=== PATIENT | female | born 1930 | race Caucasian/White ===

== ENCOUNTER 2019-11-03 19:48 | Emergency (ER) | payer OTHER ==
--- NOTE | 2019-11-03 20:49 | RAD REPORT ---
EXAM DESCRIPTION: CT - Head C Spine Cap Wo Con - 11/03/2019 8:30 pm CLINICAL HISTORY: Trauma, head and neck injury. Chest, abdomen and pelvis pain. PAIN COMPARISON: No comparisons TECHNIQUE: CT head without contrast. CT cervical spine without contrast with coronal and sagittal reformatted images. CT chest, abdomen and pelvis without contrast with coronal and sagittal reformatted images of the [facility] [place]. All CT scans are performed using dose optimization technique as appropriate and may include automated exposure control or mA/KV adjustment according to patient size. FINDINGS: CT HEAD WITHOUT CONTRAST: No intracranial hemorrhage, hydrocephalus or extra-axial fluid collection. Moderate generalized brain atrophy is present with moderate periventricular and deep white matter chronic microvascular ischemi c changes. No areas of brain edema or midline shift. The paranasal sinuses and mastoids are clear. The calvarium is intact. Small posterior left scalp hem atoma. CT CERVICAL SPINE WITHOUT CONTRAST: No fracture or subluxation. The prevertebral soft tissues are normal in thickness. CT CHEST, ABDOMEN, PELVIS WITHOUT CONTRAST: NOTE: Lack of contrast is a significant limitation in the assessment of trauma related findings. Spec ifically, solid organ, vascular and bowel evaluation is significantly limited. The lungs are clear.No pneumothorax or pericardial/pleural fluid. No evidence of intra-abdominal visceral injury, free fluid or free air is seen within the above detai led limitations. Moderate axial hiatal hernia. Prominent sigmoid diverticulosis without diverticulitis. Mild wedge compression deformity of the T4 vertebral body seen, age uncertain. Vertebral body height loss is estimated at 15-20% IMPRESSION: Mild wedge compression deformity of the T4 vertebral body noted, age uncertain. Correlat ion with back pain symptomology in this region is suggested. Elsewhere, no acute trauma finding seen.
--- NOTE | 2019-11-03 21:23 | ER ---
Nurse's Notes [facility] Name: Faby Berkowitz Age: 89 yrs Sex: Female : 1930 Arrival Date: 11/03/2019 Time: 19:53 Bed 7 Private MD: Diagnosis: Laceration without foreign body of scalp Presentation: 11/02 19:49 Chief complaint: EMS states: PT tripped in the parking lot, fell backwards and hit her jb4 head. No LOC, no blood thinners. PT is A\T\Ox4. 19:49 Care prior to arrival: None. Mechanism of Injury: Fall from standing position. Trauma jb4 event details: Injury occurred in the [facility]. 19:49 Acuity: LINA 2 jb4 19:49 Method Of Arrival: EMS: [facility] jb4 19:49 Coronavirus screen: Client denies travel out of the [place] in the last 14 days. At this jb4 time, the client does not indicate any symptoms associated with coronavirus-19. Ebola Screen: Patient negative for fever greater than or equal to 101.5 degrees Fahrenheit, and additional compatible Ebola Virus Disease symptoms. 19:49 Initial Sepsis Screen: Does the patient meet any 2 criteria? No. Patient's initial jb4 sepsis screen is negative. Does the patient have a suspected source of infection? No. Patient's initial sepsis screen is negative. Risk Assessment: Do you want to hurt yourself or someone else? Patient reports no desire to harm self or others. Onset of symptoms was November 03, 2019. Transition of care: patient was not received from another setting of care. Trauma Activation: Alert Physician: ED Physician; Name: Ngozi; Notified At: 19:49; Arrived At: 19:49 Physician: General Surgeon; Name: ; Notified At: 19:49; Arrived At: Physician: Radiology; Name: Ru; Notified At: 19:49; Arrived At: 19:49 Physician: Respiratory; Name: ; Notified At: 19:49; Arrived At: Physician: Lab; Name: ; Notified At: 19:49; Arrived At: Historical: - Allergies: 19:49 No Known Allergies; jb4 - Home Meds: 19:49 Blood pressure medication [Active]; Medication for Osteoporosis [Active]; jb4 - PMHx: 19:49 Osteoporosis; Hypertension; jb4 - PSHx: 19:49 None; jb4 - Immunization history:: Adult Immunizations up to date, Last tetanus immunization: unknown. - Immunization history: Last tetanus immunization: unknown. - Social history:: Smoking status: Patient reports the use of cigarette tobacco products, denies chronic smoking, but will smoke occasionally, Patient/guardian denies using alcohol, street drugs. Screenin:49 Abuse screen: Denies threats or abuse. Nutritional screening: No deficits noted. jb4 Tuberculosis screening: No symptoms or risk factors identified. Fall risk At risk due to age, prior history of falls, Intervention for positive screen: ED Physician notified, side rails up. 19:49 Fall Risk Fall in past 12 months (25 points). Total Marin Fall Scale indicates Low Risk jb4 Score (25-44 pts). Fall prevention measures have been instituted. Side Rails Up X 2 Placed close to Nursing Station Frequent Obs/Assesments occuring Family Present and informed to notify staff if they need to leave bedside As available Patient and Family Educated on Fall Prevention Program and strategies. Primary Survey: 19:49 NO uncontrolled hemorrhage observed. A: The patient is alert. Airway: patent, No jb4 supplemental oxygen in use on arrival. Oral cavity: clear, gag reflex present. Breathing/Chest: Respiratory pattern: regular, Respiratory effort: spontaneous, unlabored, Chest inspection: symmetrical rise and fall of the chest. Circulation: Skin color: pink, Skin temperature: warm, dry. Disability Alert. Exposure/Environment: All clothing and personal items were removed. Forensic evidence collection is not deemed to be indicated at this time. Items placed in patient belonging bag. 20:45 Reassessment Airway Airway Patent Oral cavity Clear +Gag reflex Breathing/Chest jb4 Respiratory pattern Regular Respiratory effort Spontaneous Unlabored Chest inspection Symmetrical Circulation Color [place] Temperature Warm Dry Disability Alert. Secondary Survey: 19:49 HEENT: Head Other Laceration noted to the posterior left skalp Face No injury/deformity jb4 Eyes: No injury or deformity noted. Ears: clear Nose: clear to bilateral nares. Throat: is clear with gag reflex present. Gastrointestinal: No deficits noted. : No deficits noted. No signs and/or symptoms were reported regarding the genitourinary system. Musculoskeletal: No deficits noted. No signs and/or symptoms reported regarding the musculoskeletal system. Injury Description: Laceration sustained to left parietal area is not bleeding. Assessment: 19:49 General: Appears in no apparent distress. comfortable, Behavior is calm, cooperative, jb4 appropriate for age. Pain: Denies pain. Neuro: Level of Consciousness is awake, alert, obeys commands, Oriented to person, place, time, situation. Cardiovascular: Patient's skin is warm and dry. Respiratory: Airway is patent Respiratory effort is even, unlabored, Respiratory pattern is regular, symmetrical. GI: No signs and/or symptoms were reported involving the gastrointestinal system. : No signs and/or symptoms were reported regarding the genitourinary system. EENT: No signs and/or symptoms were reported regarding the EENT system. Derm: Skin is pink, warm \T\ dry. Musculoskeletal: Circulation, motion, and sensation intact. Range of motion:. Injury Description: Laceration sustained to left parietal area is not bleeding, moderate bleeding noted at this time. 20:45 Reassessment: Patient appears in no apparent distress at this time. Patient and/or jb4 family updated on plan of care and expected duration. Pain level reassessed. Patient is alert, oriented x 3, equal unlabored respirations, skin warm/dry/pink. 21:43 Reassessment: Patient appears in no apparent distress at this time. Patient and/or jb4 family updated on plan of care and expected duration. Pain level reassessed. Patient is alert, oriented x 3, equal unlabored respirations, skin warm/dry/pink. Daughter and pt verbalized understanding of D/c and follow up instructions. Denies questions or concerns. Assisted to vehicle via wheelchair. Vital Signs: 19:49 BP 173 / 71; Pulse 75; Resp 18; Temp 98.4(O); Pulse Ox 98% on R/A; Weight 43.54 kg (R); jb4 Height 5 ft. 2 in. (157.48 cm); Pain 0/10; 20:15 BP 168 / 102; Pulse 74; Resp 16; Pulse Ox 98% on R/A; jb4 21:30 BP 180 / 81; Pulse 72; Resp 16; Pulse Ox 97% on R/A; Pain 0/10; jb4 19:49 Body Mass Index 17.56 (43.54 kg, 157.48 cm) jb4 [place] Coma Score: 19:49 Eye Response: spontaneous(4). Verbal Response: oriented(5). Motor Response: obeys jb4 commands(6). Total: 15. 20:45 Eye Response: spontaneous(4). Verbal Response: oriented(5). Motor Response: obeys jb4 commands(6). Total: 15. 21:44 Eye Response: spontaneous(4). Verbal Response: oriented(5). Motor Response: obeys jb4 commands(6). Total: 15. Trauma Score (Adult): 19:49 Eye Response: spontaneous(1); Verbal Response: oriented(1); Motor Response: obeys jb4 commands(2); Systolic BP: > 89 mm Hg(4); Respiratory Rate: 10 to 29 per min(4); [place] Score: 15; Trauma Score: 12 20:45 Eye Response: spontaneous(1); Verbal Response: oriented(1); Motor Response: obeys jb4 commands(2); Systolic BP: > 89 mm Hg(4); Respiratory Rate: 10 to 29 per min(4); [place] Score: 15; Trauma Score: 12 21:44 Eye Response: spontaneous(1); Verbal Response: oriented(1); Motor Response: obeys jb4 commands(2); Systolic BP: > 89 mm Hg(4); Respiratory Rate: 10 to 29 per min(4); [place] Score: 15; Trauma Score: 12 ED Course: 19:49 Patient has correct armband on for positive identification. Allergy band placed. Bed in jb4 low position. Call light in reach. Side rails up X 1. 19:49 Arm band placed on right wrist. jb4 19:49 newspaper correspondent on. Pulse ox on. NIBP on. jb4 19:49 Patient maintains SpO2 saturation greater than 95% on room air. Thermoregulation: warm jb4 blanket given to patient. 19:53 Patient arrived in ED. jb4 19:53 Christoph Jones, RN is Primary Nurse. jb4 19:55 Triage completed. jb4 20:19 Ron Corey PA is PHCP. jr8 20:19 Roger Melvin MD is Attending Physician. jr8 20:30 Head C Spine Cap Wo Con CT In Process Unspecified. EDMS 21:15 Assist provider with laceration repair on left parietal area that was 2.5 cm. or less jb4 using yessi. Performed by Ron TRUONG Patient tolerated well. 21:15 Patient did not have IV access during this emergency room visit. jb4 Administered Medications: No medications were administered Intake: 21:30 PO: 0ml; Total: 0ml. jb4 Output: 21:30 Urine: 0ml; Total: 0ml. jb4 Outcome: 21:22 Discharge ordered by . celina 21:46 Discharged to home via wheelchair, with family. jb4 21:46 Condition: stable 21:46 Discharge instructions given to patient, family, Instructed on discharge instructions, follow up and referral plans. wound care, Demonstrated understanding of instructions, follow-up care, wound care. 21:47 Patient's length of stay was not longer than 2 hours. jb4 21:47 Patient left the ED. jb4 Signatures: Dispatcher [employer] EDRon Candelario PA PA jr8 Bryson, James, RN RN jb4
--- NOTE | 2019-11-03 21:23 | EDPHYS ---
Physician Documentation [facility] Name: Faby Berkowitz Age: 89 yrs Sex: Female : 1930 Arrival Date: 11/03/2019 Time: 19:53 Bed 7 Private MD: ED Physician Roger Melvin HPI: 11/02 21:02 This 89 yrs old Female presents to ER via EMS with complaints of fall injury. jr8 21:02 Details of fall: The patient fell from an upright position, while standing. Onset: The jr8 symptoms/episode began/occurred acutely, today. Associated injuries: The patient sustained injury to the head, hematoma, laceration. Severity of symptoms: At their worst the symptoms were mild, in the emergency department the symptoms are unchanged. The patient has not experienced similar symptoms in the past. The patient has not recently seen a physician. Stated that she was walking to apartment and tripped on curb falling backwards. Denies LOC . Historical: - Allergies: 19:49 No Known Allergies; jb4 - Home Meds: 19:49 Blood pressure medication [Active]; Medication for Osteoporosis [Active]; jb4 - PMHx: 19:49 Osteoporosis; Hypertension; jb4 - PSHx: 19:49 None; jb4 - Immunization history:: Adult Immunizations up to date, Last tetanus immunization: unknown. - Immunization history: Last tetanus immunization: unknown. - Social history:: Smoking status: Patient reports the use of cigarette tobacco products, denies chronic smoking, but will smoke occasionally, Patient/guardian denies using alcohol, street drugs. ROS: 21:02 Eyes: Negative for injury, pain, redness, and discharge, ENT: Negative for injury, jr8 pain, and discharge, Neck: Negative for injury, pain, and swelling, Cardiovascular: Negative for chest pain, palpitations, and edema, Respiratory: Negative for shortness of breath, cough, wheezing, and pleuritic chest pain, Abdomen/GI: Negative for abdominal pain, nausea, vomiting, diarrhea, and constipation, Back: Negative for injury and pain, MS/Extremity: Negative for injury and deformity, Neuro: Negative for headache, weakness, numbness, tingling, and seizure. 21:02 Skin: Positive for hematoma, laceration(s), of the scalp. Exam: 21:02 Eyes: Pupils equal round and reactive to light, extra-ocular motions intact. Lids and jr8 lashes normal. Conjunctiva and sclera are non-icteric and not injected. Cornea within normal limits. Periorbital areas with no swelling, redness, or edema. ENT: Nares patent. No nasal discharge, no septal abnormalities noted. Tympanic membranes are normal and external auditory canals are clear. Oropharynx with no redness, swelling, or masses, exudates, or evidence of obstruction, uvula midline. Mucous membranes moist. Neck: Trachea midline, no thyromegaly or masses palpated, and no cervical lymphadenopathy. Supple, full range of motion without nuchal rigidity, or vertebral point tenderness. No Meningismus. Cardiovascular: Regular rate and rhythm with a normal S1 and S2. No gallops, murmurs, or rubs. Normal PMI, no JVD. No pulse deficits. Respiratory: Lungs have equal breath sounds bilaterally, clear to auscultation and percussion. No rales, rhonchi or wheezes noted. No increased work of breathing, no retractions or nasal flaring. Abdomen/GI: Soft, non-tender, with normal bowel sounds. No distension or tympany. No guarding or rebound. No evidence of tenderness throughout. Back: No spinal tenderness. No costovertebral tenderness. Full range of motion. Skin: Warm, dry with normal turgor. Normal color with no rashes, no lesions, and no evidence of cellulitis. MS/ Extremity: Pulses equal, no cyanosis. Neurovascular intact. Full, normal range of motion. Neuro: Awake and alert, GCS 15, oriented to person, place, time, and situation. Cranial nerves II-XII grossly intact. Motor strength 5/5 in all extremities. Sensory grossly intact. Cerebellar exam normal. Normal gait. 21:02 Head/face: Noted is hematoma, that is mild, of the left occipital area, a laceration(s), that is linear, 2 cm(s), of the left occipital area. Vital Signs: 19:49 BP 173 / 71; Pulse 75; Resp 18; Temp 98.4(O); Pulse Ox 98% on R/A; Weight 43.54 kg (R); jb4 Height 5 ft. 2 in. (157.48 cm); Pain 0/10; 20:15 BP 168 / 102; Pulse 74; Resp 16; Pulse Ox 98% on R/A; jb4 21:30 BP 180 / 81; Pulse 72; Resp 16; Pulse Ox 97% on R/A; Pain 0/10; jb4 19:49 Body Mass Index 17.56 (43.54 kg, 157.48 cm) jb4 [place] Coma Score: 19:49 Eye Response: spontaneous(4). Verbal Response: oriented(5). Motor Response: obeys jb4 commands(6). Total: 15. 20:45 Eye Response: spontaneous(4). Verbal Response: oriented(5). Motor Response: obeys jb4 commands(6). Total: 15. 21:44 Eye Response: spontaneous(4). Verbal Response: oriented(5). Motor Response: obeys jb4 commands(6). Total: 15. Trauma Score (Adult): 19:49 Eye Response: spontaneous(1); Verbal Response: oriented(1); Motor Response: obeys jb4 commands(2); Systolic BP: > 89 mm Hg(4); Respiratory Rate: 10 to 29 per min(4); Sandeep Score: 15; Trauma Score: 12 20:45 Eye Response: spontaneous(1); Verbal Response: oriented(1); Motor Response: obeys jb4 commands(2); Systolic BP: > 89 mm Hg(4); Respiratory Rate: 10 to 29 per min(4); Jackson Score: 15; Trauma Score: 12 21:44 Eye Response: spontaneous(1); Verbal Response: oriented(1); Motor Response: obeys jb4 commands(2); Systolic BP: > 89 mm Hg(4); Respiratory Rate: 10 to 29 per min(4); [place] Score: 15; Trauma Score: 12 Laceration: 21:26 Wound Repair of 2cm ( 0.8in ) subcutaneous laceration to scalp. Linear shaped.. Minimal jr8 bleeding noted.. Distal neuro/vascular/tendon intact. Wound prep: Moderate cleansing with hibiclenz, Wound irrigation with saline, Wound explored extensively. Skin closed with 2 nicolette [place] using staple gun. Patient tolerated well. MDM: 20:19 Patient medically screened. jr8 21:21 Data reviewed: vital signs, nurses notes, radiologic studies, CT scan. Data jr8 interpreted: Pulse oximetry: on room air is 98 %. Interpretation: normal. Counseling: I had a detailed discussion with the patient and/or guardian regarding: the historical points, exam findings, and any diagnostic results supporting the discharge/admit diagnosis, radiology results, the need for outpatient follow up, a family practitioner, to return to the emergency department if symptoms worsen or persist or if there are any questions or concerns that arise at home. 11/02 20:22 Order name: Head C Spine Cap Wo Con CT; Complete Time: 21:02 lp1 Administered Medications: No medications were administered Disposition: 11/03 06:13 Co-signature as Attending Physician, Roger Melvin MD. 7 Disposition: 11/03/19 21:22 Discharged to Home. Impression: Laceration without foreign body of scalp. - Condition is Stable. - Discharge Instructions: Head Injury, Adult, Laceration Care, Adult, Stitches, Nicolette, or Adhesive Wound Closure. - Medication Reconciliation Form, Thank You Letter, Antibiotic Education, Prescription Opioid Use form. - Follow up: Private Physician; When: 5 - 6 days; Reason: Wound Recheck, Recheck today's complaints, Continuance of care, Staple/Suture removal, Re-evaluation by your physician. - Problem is new. - Symptoms have improved. Signatures: Dispatcher [employer] EDMS Ron Corey PA PA jr8 Christoph Jones RN RN jb4 Roger Melvin MD MD 7 Corrections: (The following items were deleted from the chart) 11/02 21:04 21:02 Stated that she was walking to apartment and tripped on curb falling backwards. jr8 jr8 21:47 21:22 11/03/2019 21:22 Discharged to Home. Impression: Laceration without foreign body jb4 of scalp. Condition is Stable. Forms are Medication Reconciliation Form, Thank You Letter, Antibiotic Education, Prescription Opioid Use. Follow up: Private Physician; When: 5 - 6 days; Reason: Wound Recheck, Recheck today's complaints, Continuance of care, Staple/Suture removal, Re-evaluation by your physician. Problem is new. Symptoms have improved. jr8
[2019-11-03 22:42] VITALS: TEMP 98.4
[2019-11-03 22:44] VITALS: BP 180/81; O2SAT 97
== END 2019-11-03 21:47 | disposition home or self-care (01) ==
LOC: ER 19:48
PROC: 0JQ00ZZ Repair Scalp Subcutaneous Tissue and Fascia, Open Approach (ICD-10-PCS; principal; 2019-11-03)
DX: S01.01XA Laceration without foreign body of scalp, initial encounter (principal); W18.09XA Striking against other object with subsequent fall, initial encounter; Y93.01 Activity, walking, marching and hiking; Y92.89 Other specified places as the place of occurrence of the external cause; I10 Essential (primary) hypertension; Z72.0 Tobacco use
CPT/HCPCS: 70450; 71250; 72125; 99285; G0390

== ENCOUNTER 2019-11-26 07:40 | Emergency (ER) | payer OTHER ==
--- NOTE | 2019-11-26 08:10 | ER ---
Nurse's Notes [facility] Name: Faby Berkowitz Age: 89 yrs Sex: Female : 1930 Arrival Date: 11/26/2019 Time: 07:41 Bed 13 Private MD: Diagnosis: Encounter for removal of sutures Presentation: 11/25 07:52 Chief complaint: Patient states: Here to have 2 yessi removed from scalp. Injury was ss 14 days ago. Denies pain. No redness or swelling noted. Coronavirus screen: Client denies travel out of the [place] in the last 14 days. Ebola Screen: Patient denies exposure to infectious person. Patient denies travel to an Ebola-affected area in the 21 days before illness onset. Initial Sepsis Screen: Does the patient meet any 2 criteria? No. Patient's initial sepsis screen is negative. Does the patient have a suspected source of infection? No. Patient's initial sepsis screen is negative. Risk Assessment: Do you want to hurt yourself or someone else? Patient reports no desire to harm self or others. Onset of symptoms was November 13, 2019. 07:52 Method Of Arrival: Ambulatory ss 07:52 Acuity: LINA 5 ss Historical: - PMHx: 07:54 Hypertension; Osteoporosis; ss - Immunization history:: Adult Immunizations up to date. - Social history:: Smoking status: Patient/guardian denies using alcohol, street drugs. - Family history:: not pertinent. Screenin:15 Abuse screen: Denies threats or abuse. Denies injuries from another. Nutritional ss screening: No deficits noted. Tuberculosis screening: No symptoms or risk factors identified. Never had TB. Fall Risk None identified. Assessment: 08:15 General: Appears in no apparent distress. comfortable. Pain: Denies pain. Neuro: Level ss of Consciousness is awake, alert. Cardiovascular: Capillary refill < 3 seconds is brisk in bilateral fingers. Respiratory: Respiratory effort is even, unlabored. Derm: Skin is intact, is healthy with good turgor, Skin is dry, Skin is pink, warm \T\ dry. normal. Musculoskeletal: Circulation, motion, and sensation intact. Range of motion: intact in all extremities. Vital Signs: 07:52 BP 142 / 74; Pulse 82; Resp 17; Temp 97.8(TE); Pulse Ox 97% on R/A; Pain 0/10; ss ED Course: 07:41 Patient arrived in ED. ds1 07:47 Ruby Alvarez MD is Attending Physician. ma2 07:54 Triage completed. ss 07:54 Arm band placed on right wrist. ss 08:14 Marley Herzog, RN is Primary Nurse. 08:14 No provider procedures requiring assistance completed. Patient did not have IV access ss during this emergency room visit. Removal of Removed yessi from scalp. 08:15 Patient has correct armband on for positive identification. Bed in low position. Call ss light in reach. Administered Medications: No medications were administered Outcome: 08:09 Discharge ordered by . ma2 08:14 Discharged to home with family. ss 08:14 Condition: good 08:14 Discharge instructions given to patient, family, Instructed on discharge instructions, follow up and referral plans. wound care, Demonstrated understanding of instructions, follow-up care, wound care. 08:16 Patient left the ED. Signatures: Eneida Ambrose ds1 Marley Herzog, ELSIE RN Ruby Alvarez MD MD [facility]
--- NOTE | 2019-11-26 08:10 | EDPHYS ---
Physician Documentation [facility] Name: Faby Berkowitz Age: 89 yrs Sex: Female : 1930 Arrival Date: 11/26/2019 Time: 07:41 Bed 13 Private MD: ED Physician Ruby Alvarez HPI: 11/25 08:07 This 89 yrs old Female presents to ER via Ambulatory with complaints of ma2 Suture Removal. 08:07 The patient has yessi on the scalp. Previous treatment: The patient was initially ma2 treated 6 day(s) ago. Sutures/yessi progress: The patient has no c/o's. The wound is well-healing with no redness, swelling, discharge, or dehiscence reported. The patient has not experienced similar symptoms in the past. Historical: - PMHx: 07:54 Hypertension; Osteoporosis; ss - Immunization history:: Adult Immunizations up to date. - Social history:: Smoking status: Patient/guardian denies using alcohol, street drugs. - Family history:: not pertinent. ROS: 08:07 Constitutional: Negative for fever, chills, and weight loss. ma2 08:07 All other systems are negative. Exam: 08:07 Constitutional: This is a well developed, well nourished patient who is awake, alert, ma2 and in no acute distress. Head/Face: Normocephalic, atraumatic. Eyes: Pupils equal round and reactive to light, extra-ocular motions intact. Lids and lashes normal. Conjunctiva and sclera are non-icteric and not injected. Cornea within normal limits. Periorbital areas with no swelling, redness, or edema. ENT: Nares patent. No nasal discharge, no septal abnormalities noted. Tympanic membranes are normal and external auditory canals are clear. Oropharynx with no redness, swelling, or masses, exudates, or evidence of obstruction, uvula midline. Mucous membranes moist. Chest/axilla: Normal chest wall appearance and motion. Nontender with no deformity. No lesions are appreciated. Cardiovascular: Regular rate and rhythm with a normal S1 and S2. No gallops, murmurs, or rubs. Normal PMI, no JVD. No pulse deficits. Respiratory: Lungs have equal breath sounds bilaterally, clear to auscultation and percussion. No rales, rhonchi or wheezes noted. No increased work of breathing, no retractions or nasal flaring. Abdomen/GI: Soft, non-tender, with normal bowel sounds. No distension or tympany. No guarding or rebound. No evidence of tenderness throughout. MS/ Extremity: Pulses equal, no cyanosis. Neurovascular intact. Full, normal range of motion. Neuro: Awake and alert, GCS 15, oriented to person, place, time, and situation. Cranial nerves II-XII grossly intact. Motor strength 5/5 in all extremities. Sensory grossly intact. Cerebellar exam normal. Normal gait. Psych: Awake, alert, with orientation to person, place and time. Behavior, mood, and affect are within normal limits. Vital Signs: 07:52 BP 142 / 74; Pulse 82; Resp 17; Temp 97.8(TE); Pulse Ox 97% on R/A; Pain 0/10; ss Procedures: 08:07 Suture/Staple removal: Removed 2 yessi, from scalp, site appears dressed with Patient ma2 tolerated well. MDM: 07:47 Patient medically screened. [facility] 08:07 Data reviewed: vital signs, nurses notes. Counseling: I had a detailed discussion with ma the patient and/or guardian regarding: the historical points, exam findings, and any diagnostic results supporting the discharge/admit diagnosis, the presence of at least one elevated blood pressure reading (>120/80) during this emergency department visit, the need for outpatient follow up. Administered Medications: No medications were administered Disposition: 11/26/19 08:09 Discharged to Home. Impression: Encounter for removal of sutures. - Condition is Stable. - Discharge Instructions: Suture Removal, Care After. - Medication Reconciliation Form, Thank You Letter, Antibiotic Education, Prescription Opioid Use form. - Follow up: Private Physician; When: Tomorrow; Reason: Continuance of care. Signatures: Marley Herzog RN RN ss Alzahri, Mohammad, MD MD [facility] Corrections: (The following items were deleted from the chart) 08:16 08:09 11/26/2019 08:09 Discharged to Home. Impression: Encounter for removal of ss sutures. Condition is Stable. Forms are Medication Reconciliation Form, Thank You Letter, Antibiotic Education, Prescription Opioid Use. Follow up: Private Physician; When: Tomorrow; Reason: Continuance of care. el2
[2019-11-26 08:21] VITALS: BP 142/74; TEMP 97.8; O2SAT 97
== END 2019-11-26 08:16 | disposition home or self-care (01) ==
LOC: ER 07:40
DX: Z48.02 Encounter for removal of sutures (principal)
CPT/HCPCS: 99281

== ENCOUNTER 2020-01-01 10:18 | Emergency (ER) | payer OTHER ==
--- NOTE | 2020-01-01 11:30 | RAD REPORT ---
EXAM DESCRIPTION: CT - [id number] - 01/01/2020 11:09 am CLINICAL HISTORY: Fall injury, contusion and laceration to forehead, head injury, neck pain COMPARISON: Head C Spine Cap Wo Con dated 11/03/2019 TECHNIQUE: Axial 5 mm thick images of the head were obtained. Axial 2 mm thick images of the cervic al spine were obtained with sagittal and coronal reconstruction images generated and reviewed. All CT scans are performed using dose optimization technique as appropriate and may include automated exposure control or mA/KV adjustment according to patient size. FINDINGS: No intracranial hemorrhage, mass, edema or acute intracranial finding. No suspicion for ac serafin infarction. No extra-axial fluid collections. Mastoid air cells are clear. Patient has moderate s everity atrophy with ventricles in proportion. Chronic ischemic changes are minimal for age. No orbit al content acute finding. Patient has multiple facial bone fractures. Right orbital floor fracture is present along the anterio r rim. . There is extension of fatty tissue through the fracture. No entrapment of the inferior rectu s muscle. No air-fluid level in the paranasal sinus. Right lateral orbital wall is fractured. The lat eral right sinus wall is fractured and there is side pneumatic arch fracture. Condyles are normally p ositioned. Mandible fracture is not seen. Patient has a small right frontal scalp hematoma. Underlyin g frontal bone is intact. Patient has hyperostosis frontalis interna as a normal variant. Cervical bodies are normal in height. Very minimal anterior subluxation of C4 on C5 noted. Very sligh t wedging of C3 noted. C5-6 disc space narrowing present. These are all stable findings from on. No other disc space narrowing. No acute fracture or acute bone abnormality seen. T4 body is only partially imaged. The partial compression fracture is unchanged from October comparison. Central meseret l detail is inherently limited. No paraspinal mass or hematoma. IMPRESSION: No hemorrhage, edema or acute intracranial finding identified. The patient has atrophy a nd chronic ischemic changes match the short interval November 02 study. Multiple right-sided facial bone fractures are present. Right orbital floor fracture is present. Fat extends through the floor fracture defect with no entrapment of the inferior rectus muscle. Lateral right orbit and lateral right maxillary sinus fractures are present with zygomatic arch fract ure. No significant displacement of the fracture fragments. Cervical spine degenerative changes are present and stable from November 02. No acute finding.
[2020-01-01] MEDS ORDERED: LIDOCAINE 1% MPF 5 ML VIAL ONE (12:34)
--- NOTE | 2020-01-01 13:01 | EDPHYS ---
Physician Documentation [facility] Name: Faby Berkowitz Age: 89 yrs Sex: Female : 1930 Arrival Date: 01/01/2020 Time: : Bed 6 Private MD: Qamar Pardo F ED Physician Scott Fan HPI: 12/31 10:35 This 89 yrs old Female presents to ER via Unassigned with complaints of Fall pm1 Injury. 10:35 Details of fall: The patient fell from an upright position, while standing. Onset: The pm1 symptoms/episode began/occurred last night, at 21:00. Associated injuries: The patient sustained injury to the head, abrasion and contusion to right side of forehead and laceration to lateral aspect of right eyebrow. Severity of symptoms: in the emergency department the symptoms have improved, daughter applied butterfly bandages to laceration last night. The patient has not recently seen a physician, has an appointment scheduled, Dr. Pardo on 01/05 for evaluation of dementia/alzheimers. Patient was walking out of the restroom last night and she has been refusing to use a cane or walker. Her family was telling her to use a cane and she got upset. She then started using the cane they gave her to try hitting them. She lost her balance and hit the floor. No LOC. Contusion and abrasion present to right side of forehead and laceration that was treated with butterfly bandages to lateral aspect of right eyebrow. Patient denies any pain, headache, or neck pain. 10:59 Patient fell on last week with resulting swelling and bruising to right cheek pm1 area. She had laceration to right eyebrow area that was healed up. When she fell again last night the wound laceration to right eyebrow opened up. Historical: - Allergies: 10:50 No Known Allergies; bp - Home Meds: 10:50 BLOOD PRESSURE MEDICATION [Active]; Medication for Osteoporosis [Active]; bp - PMHx: 10:50 Hypertension; Osteoporosis; bp - Immunization history:: Adult Immunizations unknown. - Social history:: Smoking status: unknown. ROS: 10:59 Constitutional: Negative for fever, chills, and weight loss, Neck: Negative for injury, pm1 pain, and swelling, Cardiovascular: Negative for chest pain, palpitations, and edema, Respiratory: Negative for shortness of breath, cough, wheezing, and pleuritic chest pain, Abdomen/GI: Negative for abdominal pain, nausea, vomiting, diarrhea, and constipation, Back: Negative for injury and pain, MS/Extremity: Negative for injury and deformity. 10:59 Neuro: Negative for headache, weakness, numbness, tingling, and seizure. 10:59 Skin: Positive for laceration(s), of the outer aspect of right eyebrow, Abrasion to right forehead. Exam: 10:59 Constitutional: This is a well developed, well nourished patient who is awake, alert, pm1 and in no acute distress. 10:59 Neck: Trachea midline, no thyromegaly or masses palpated, and no cervical lymphadenopathy. Supple, full range of motion without nuchal rigidity, or vertebral point tenderness. No Meningismus. Chest/axilla: Normal chest wall appearance and motion. Nontender with no deformity. No lesions are appreciated. Back: No spinal tenderness. No costovertebral tenderness. Full range of motion. 10:59 Skin: Warm, dry with normal turgor. Normal color with no rashes, no lesions, and no evidence of cellulitis. MS/ Extremity: Pulses equal, no cyanosis. Neurovascular intact. Full, normal range of motion. 10:59 Head/face: Exam is negative for aleman signs, raccoon eyes, Noted is no obvious of injury or deformity except abrasion(s), that are mild, of the forehead, right side, of the 2 cm laceration to outer right eyebrow. 10:59 Eyes: Periorbital structures: erythema, is not appreciated, swelling, is not appreciated, Pupils: no acute changes, normal size, normal reaction to light, Extraocular movements: intact throughout, Conjunctiva: no acute changes, EOMI without any pain. No entrapment present on physical examination. 10:59 Cardiovascular: Exam negative for acute changes, Rate: normal, Rhythm: regular, Pulses: no pulse deficits are appreciated. 10:59 Respiratory: Exam negative for acute changes, respiratory distress, shortness of breath. Vital Signs: 10:25 BP 150 / 69; Pulse 75; Resp 17; Temp 98.5; Pulse Ox 98% ; bp 11:30 BP 164 / 79; Pulse 75; Resp 16; Pulse Ox 100% ; bp 12:23 BP 167 / 74; Pulse 89; Resp 16; Pulse Ox 98% ; bp 13:24 BP 183 / 79; Pulse 76; Resp 17; Temp 98.5; Pulse Ox 98% ; bp Laceration: 12:50 Wound Repair of 1.5cm ( 0.6in ) subcutaneous laceration to outer aspect of right pm1 eyebrow. Irregularly shaped.. Distal neuro/vascular/tendon intact. Anesthesia: Local anesthetic administered with 1 mls of 1% lidocaine. Wound prep: Extensive cleansing with hibiclenz by me, Wound irrigation with saline by me, Wound explored extensively, Copious irrigation. Skin closed with 4 5-0 Prolene using simple sutures and sterile technique. Dressed with Neosporin. Patient tolerated well. MDM: 10:26 Patient medically screened. pm1 12:16 ED course: Facial fractures on CT appear to have occurred on of last week. pm1 Daughter reports that bruising to face and swelling was present on face prior to fall last night. Bruising is purple in color indicating older than last night. Patient's EOM intact and without any pain. No entrapment present on examination. Discussed CT results with her daughter and other family member. 12:50 Data reviewed: vital signs. Data interpreted: Pulse oximetry: on room air is 98 %. pm1 Interpretation: normal. Counseling: I had a detailed discussion with the patient and/or guardian regarding: the historical points, exam findings, and any diagnostic results supporting the discharge/admit diagnosis, radiology results, the need for outpatient follow up, suture removal in 5 days. Follow up with Edvin as scheduled, to return to the emergency department if symptoms worsen or persist or if there are any questions or concerns that arise at home. 12/31 10:35 Order name: CT Head C Spine; Complete Time: 11:36 pm1 12/31 12:18 Order name: Prolene, Sutures; Complete Time: 12:23 pm1 12/31 12:18 Order name: Dressing - Wound; Complete Time: 12:23 pm1 12/31 12:18 Order name: Gloves, Sterile; Complete Time: 12:23 pm1 12/31 12:18 Order name: Setup Suture Tray; Complete Time: 12:23 pm1 Administered Medications: 12:20 Drug: Lidocaine (1 %) 5 ml Volume: 5 ml; Route: Infiltration; bp Disposition: 14:11 Co-signature as Attending Physician, Scott Fan MD. rn Disposition: 01/01/20 13:00 Discharged to Home. Impression: Fracture of orbital floor - with no entrapment, Laceration without foreign body of other part of head - riight outer eyebrow, Contusion of unspecified part of head - right side of forehead, Maxillary sinus fracture. - Condition is Stable. - Discharge Instructions: Fall Prevention in the Home, Facial Laceration, Orbital Floor Fracture Without Entrapment. - Prescriptions for Augmentin 875- 125 mg Oral Tablet - take 1 tablet by ORAL route every 12 hours for 10 days; 20 tablet. - Medication Reconciliation Form, Thank You Letter, Antibiotic Education, Prescription Opioid Use form. - Follow up: Emergency Department; When: As needed; Reason: Worsening of condition. Follow up: Private Physician; When: Suture removal in 4-5 days; Reason: Wound Recheck, Recheck today's complaints, Continuance of care, Staple/Suture removal, Re-evaluation by your physician. - Problem is new. - Symptoms have improved. Signatures: Dispatcher [employer] EDMS Scott Fan MD MD rn Marinas, Patrick, NP FORENSIC PHOTOGRAPHER pm1 Duarte Tavera RN RN bp Corrections: (The following items were deleted from the chart) 13:27 13:00 01/01/2020 13:00 Discharged to Home. Impression: Fracture of orbital floor - with bp no entrapmentLaceration without foreign body of other part of head - riight outer eyebrow; Contusion of unspecified part of head - right side of forehead; Maxillary sinus fracture. Condition is Stable. Forms are Medication Reconciliation Form, Thank You Letter, Antibiotic Education, Prescription Opioid Use. Follow up: Emergency Department; When: As needed; Reason: Worsening of condition. Follow up: Private Physician; When: Suture removal in 4-5 days; Reason: Wound Recheck, Recheck today's complaints, Continuance of care, Staple/Suture removal, Re-evaluation by your physician. Problem is new. Symptoms have improved. pm1
--- NOTE | 2020-01-01 13:01 | ER ---
Nurse's Notes [facility] Name: Faby Berkowitz Age: 89 yrs Sex: Female : 1930 Arrival Date: 01/01/2020 Time: 10:22 Bed 6 Private MD: Qamar Pardo F Diagnosis: Laceration without foreign body of other part of head-riight outer eyebrow;Fracture of orbital floor-with no entrapment;Contusion of unspecified part of head-right side of forehead;Maxillary sinus fracture Presentation: 12/31 10:25 Chief complaint: Patient's son or daughter states: FALL AT 0915 AND STRUCK HEAD, LAC R bp FOREHEAD AND BROW. 04/18 NOT USING CANE OR WALKER. Coronavirus screen: At this time, the client does not indicate any symptoms associated with coronavirus-19. Ebola Screen: No symptoms or risks identified at this time. Initial Sepsis Screen: Does the patient meet any 2 criteria? No. Patient's initial sepsis screen is negative. Does the patient have a suspected source of infection? No. Patient's initial sepsis screen is negative. Risk Assessment: Do you want to hurt yourself or someone else? Patient reports no desire to harm self or others. Onset of symptoms was January 01, 2020 at 09:15. 10:25 Method Of Arrival: Wheelchair bp 10:25 Acuity: LINA 3 bp Triage Assessment: 10:25 General: Appears in no apparent distress. uncomfortable, Behavior is cooperative, bp appropriate for age, anxious. Pain: Complains of pain in face. EENT: R FRONTAL AND BROW LAC. Neuro: Level of Consciousness is awake, alert. Cardiovascular: Rhythm is sinus rhythm. Respiratory: No deficits noted. GI: No signs and/or symptoms were reported involving the gastrointestinal system. : No signs and/or symptoms were reported regarding the genitourinary system. Derm: No deficits noted. Musculoskeletal: No deficits noted. Injury Description: Laceration sustained to forehead and right eye. Historical: - Allergies: 10:50 No Known Allergies; bp - Home Meds: 10:50 BLOOD PRESSURE MEDICATION [Active]; Medication for Osteoporosis [Active]; bp - PMHx: 10:50 Hypertension; Osteoporosis; bp - Immunization history:: Adult Immunizations unknown. - Social history:: Smoking status: unknown. Screenin:25 Abuse screen: Denies threats or abuse. Denies injuries from another. Nutritional bp screening: No deficits noted. Tuberculosis screening: No symptoms or risk factors identified. Fall Risk Fall in past 12 months (25 points). No secondary diagnosis (0 pts). No IV (0 pts). Ambulatory Aid- Crutches/Cane/Walker (15 pts). Gait- Weak (10 pts.). Mental Status- Overestimates/Forgets Limitations (15 pts.). Total Marin Fall Scale indicates High Risk Score (45 or more points). Fall prevention measures have been instituted. Side Rails Up X 2 Placed Close to Nursing Station Frequent Obs/Assessments Occuring Family Present and informed to notify staff if the need to leave the bedside As available patient and family educated on Fall Prevention Program and Strategies. Assessment: 10:25 General: SEE TRIAGE NOTE. bp 11:33 Reassessment: Patient appears in no apparent distress at this time. No changes from bp previously documented assessment. PT RETURNED FROM CT. NO CHANGE IN PT NEURO STATUS. 12:23 Reassessment: DISPO ON HOLD PENDING LAC REPAIR. bp 13:24 Reassessment: PT D/C HOME VIA WALKER WITH FAMILY, DX WITH ORBITAL FLOOR FX WITHOUT bp ENTRAPMENT S/P FALL. Vital Signs: 10:25 BP 150 / 69; Pulse 75; Resp 17; Temp 98.5; Pulse Ox 98% ; bp 11:30 BP 164 / 79; Pulse 75; Resp 16; Pulse Ox 100% ; bp 12:23 BP 167 / 74; Pulse 89; Resp 16; Pulse Ox 98% ; bp 13:24 BP 183 / 79; Pulse 76; Resp 17; Temp 98.5; Pulse Ox 98% ; bp ED Course: 10:22 Patient arrived in ED. ag5 10:23 Qamar Pardo MD is Private Physician. ag5 10:25 Arm band placed on right wrist. bp 10:25 Patient has correct armband on for positive identification. Bed in low position. Call bp light in reach. Side rails up X2. Adult w/ patient. 10:26 Faraz Mahoney NP is PHCP. pm1 10:26 Scott Fan MD is Attending Physician. pm1 10:27 Duarte Tavera, ELSIE is Primary Nurse. bp 10:49 Triage completed. bp 11:09 CT Head C Spine In Process Unspecified. EDMS 13:00 Assist provider with laceration repair on face that was 2.5 cm. or less using sutures. bp Set up tray. Performed by Faraz Mahoney PLAYGROUND DIRECTOR Dressed with Neosporin, Patient tolerated well. 13:26 Patient did not have IV access during this emergency room visit. bp Administered Medications: 12:20 Drug: Lidocaine (1 %) 5 ml Volume: 5 ml; Route: Infiltration; bp Outcome: 13:00 Discharge ordered by MD. pm1 13:26 Discharged to home via wheelchair, with family. bp 13:26 Condition: stable 13:26 Discharge instructions given to patient, family, Instructed on discharge instructions, follow up and referral plans. medication usage, wound care, Demonstrated understanding of instructions, follow-up care, medications, wound care, Prescriptions given X 1. 13:27 Patient left the ED. bp Signatures: Dispatcher [employer] EDNY Faraz Mahoney NP PLAYGROUND DIRECTOR pm1 Duarte Tavera, RN RN Amy Hickey ag5
[2020-01-01 14:16] VITALS: TEMP 98.5
[2020-01-01 14:19] VITALS: O2SAT 98
[2020-01-01 14:21] VITALS: BP 183/79
== END 2020-01-01 13:27 | disposition home or self-care (01) ==
LOC: ER 10:18
PROC: 0JQ10ZZ Repair Face Subcutaneous Tissue and Fascia, Open Approach (ICD-10-PCS; principal; 2020-01-01)
DX: S02.31XA Fracture of orbital floor, right side, initial encounter for closed fracture (principal); S02.40CA Maxillary fracture, right side, initial encounter for closed fracture; S01.111A Laceration without foreign body of right eyelid and periocular area, initial encounter; W18.30XA Fall on same level, unspecified, initial encounter; Y93.89 Activity, other specified; Y92.012 Bathroom of single-family (private) house as the place of occurrence of the external cause; I10 Essential (primary) hypertension; M81.0 Age-related osteoporosis without current pathological fracture
CPT/HCPCS: 70450; 72125; 99284